=== PATIENT | male | born 1940 | race Caucasian/White ===

== ENCOUNTER → 2016-04-20 | Outpatient (CLI) | payer OTHER ==
[~2016-04-20] MED LIST: IOPAMIDOL (ISOVUE 370) 100 ML BTL IV ONE
--- NOTE | 2016-04-20 17:00 | CT ---
CT Heart With Contrast - April 20, 2016 Indication: Precardiac ablation. Atrial fibrillation. Comparison: Portable chest dated March 12, 2016. Technique: Axial contrast-enhanced images were obtained through the chest following the uneventful in travenous administration of 98 mL Isovue-370. Multiplanar reformations were performed. Additional r eformations were performed at the workstation by the radiologist. Dose reduction techniques were util ized. Findings: Normal pulmonary venous anatomy. No accessory branches, webs, or strictures. The pulmonar y arterial system is well opacified. No embolism. The ascending aorta is ectatic measuring 4.1 cm AP. Pulmonary vein measurements are as follows: Right superior: Ostium 2.4 x 2.1 cm, first branching at 1.4 cm. Right inferior: Ostium 1.7 x 1.4 cm, first branching at 0.5 cm. Left superior: Ostium 2.3 x 1.9 cm, first branching at 2.5 cm. Left inferior: Ostium 1.8 x 1.7 cm, first branching at 1.2 cm. Left atrial volume: 152 mL Heart size is normal. No pericardial or pleural effusion. Three-vessel calcified coronary plaque prin cipally involves the proximal left anterior descending and circumflex coronary arteries. No enlarged lymph node or mass throughout the axilla, mediastinum, or imaged portion of the upper abdomen. The carole ngs are well aerated and clear with minimal diffuse peribronchial thickening. No pulmonary nodule, ma ss, edema, or consolidation. The central airway is clear. No bone lesions. There is moderate to sever e multilevel degenerative disk disease. Impression: 1. Normal pulmonary venous anatomy. 2. Three-vessel calcified coronary plaque. 3. No suspicious pulmonary nodule or lymphadenopathy.
== END ==
LOC: FIMAGING 09:44
PROVIDERS: ATTEND Internal Medicine Cardiovascular Disease
DX: Z01.810 Encounter for preprocedural cardiovascular examination (principal); I48.91 Unspecified atrial fibrillation
CPT/HCPCS: 75572; Q9967

== ENCOUNTER → 2016-09-08 | Outpatient (CLI) | payer OTHER | LOC: FIMAGING 12:07 | PROVIDERS: ATTEND Neurological Surgery | DX: M48.06 Spinal stenosis, lumbar region (principal); M51.26 Other intervertebral disc displacement, lumbar region; M43.16 Spondylolisthesis, lumbar region ==

== ENCOUNTER → 2017-07-25 | Outpatient (CLI) | payer OTHER | LOC: BHFA 13:00 | PROVIDERS: ATTEND Internal Medicine Interventional Cardiology | DX: I48.91 Unspecified atrial fibrillation (principal); I25.10 Atherosclerotic heart disease of native coronary artery without angina pectoris; R06.02 Shortness of breath | CPT/HCPCS: 78452; 93017; A9500; J2785 ==

== ENCOUNTER → 2017-09-01 | Outpatient (CLI) | payer OTHER | LOC: BHFA 15:30 | PROVIDERS: ATTEND Internal Medicine Cardiovascular Disease | DX: I48.91 Unspecified atrial fibrillation (principal) ==

== ENCOUNTER → 2018-01-30 | Outpatient (CLI) | payer OTHER | LOC: FIMAGING 12:30 | PROVIDERS: ATTEND Physician Assistant Surgical | DX: M48.061 Spinal stenosis, lumbar region without neurogenic claudication (principal); M48.07 Spinal stenosis, lumbosacral region ==

== ENCOUNTER → 2018-02-21 | Outpatient (CLI) | payer OTHER | LOC: FCPNEURO 21:00 | PROVIDERS: ATTEND Student in an Organized Health Care Education/Training Program | DX: G47.33 Obstructive sleep apnea (adult) (pediatric) (principal) ==